=== PATIENT | female | born 1975 | race Caucasian/White ===

== ENCOUNTER 2018-01-22 11:21 | Emergency (ER) | payer BC ==
[2018-01-22] MEDS ORDERED: Lidocaine 1% w/Epinephrine 1:100K 20 ML VIAL ONE (12:44)
== END 2018-01-22 13:20 | disposition home or self-care (01) ==
LOC: ERS 11:21
DX: N76.4 Abscess of vulva (principal); E11.9 Type 2 diabetes mellitus without complications; I10 Essential (primary) hypertension; E78.5 Hyperlipidemia, unspecified; Z79.4 Long term (current) use of insulin; Z79.899 Other long term (current) drug therapy
CPT/HCPCS: 56405; J2001

== ENCOUNTER 2025-07-30 10:50 | Outpatient (CLI) | payer SELFPAY | END 2025-07-30 10:51 | disposition home or self-care (01) | LOC: BICRAD 10:50 | DX: S93.501A Unspecified sprain of right great toe, initial encounter (principal) ==